=== PATIENT | female | born 1955 | race Caucasian/White ===

== ENCOUNTER 2018-10-05 04:56 | Outpatient (CLI) | payer MEDICARE, BC ==
[~2018-10-05 04:56] MED LIST: ALBU6.7H9 INH; ARIP5TAB4 PO; BENZ-49 PO; DILT180C66 PO; DULO-31 PO; FURO10VI51 IV; HYDR-4353 PO; LORA1TAB PO; PRED20TA PO; ROBDML PO
== END 2018-10-05 23:59 | disposition home or self-care (01) ==
LOC: DIABETIC 04:56
PROVIDERS: ATTEND Family Medicine
DX: E11.9 Type 2 diabetes mellitus without complications (principal); E66.9 Obesity, unspecified; Z71.3 Dietary counseling and surveillance
CPT/HCPCS: G0108

== ENCOUNTER 2018-11-18 01:11 | Outpatient (CLI) | payer MEDICARE, BC | END 2018-11-18 23:59 | disposition home or self-care (01) | LOC: DIABETIC 01:11 | PROVIDERS: ATTEND Family Medicine | DX: E11.65 Type 2 diabetes mellitus with hyperglycemia (principal); E11.40 Type 2 diabetes mellitus with diabetic neuropathy, unspecified; E11.21 Type 2 diabetes mellitus with diabetic nephropathy; E11.319 Type 2 diabetes mellitus with unspecified diabetic retinopathy without macular edema; E11.59 Type 2 diabetes mellitus with other circulatory complications; E11.43 Type 2 diabetes mellitus with diabetic autonomic (poly)neuropathy; K31.84 Gastroparesis; I10 Essential (primary) hypertension; E78.5 Hyperlipidemia, unspecified; Z79.84 Long term (current) use of oral hypoglycemic drugs; Z79.899 Other long term (current) drug therapy | CPT/HCPCS: G0108 ==

== ENCOUNTER 2019-03-22 02:32 | Outpatient (CLI) | payer MEDICARE, BC ==
[~2019-03-22 02:32] MED LIST changes: +ARIP5TAB14 PO; -ARIP5TAB4 PO
== END 2019-03-22 23:59 | disposition home or self-care (01) ==
LOC: DIABETIC 02:32
PROVIDERS: ATTEND Family Medicine
DX: E11.65 Type 2 diabetes mellitus with hyperglycemia (principal); E11.319 Type 2 diabetes mellitus with unspecified diabetic retinopathy without macular edema; E11.21 Type 2 diabetes mellitus with diabetic nephropathy; E11.40 Type 2 diabetes mellitus with diabetic neuropathy, unspecified; I10 Essential (primary) hypertension; E78.5 Hyperlipidemia, unspecified; Z79.84 Long term (current) use of oral hypoglycemic drugs
CPT/HCPCS: G0108

== ENCOUNTER 2022-04-24 06:30 | Day surgery (SDC) | payer MEDICARE, BC ==
[2022-04-23 11:43] LABS: ALBUMIN 4.2 G/DL (3.4-5.0); ANION GAP 8 (8-16); BLOOD UREA NITROGEN 14 MG/DL (7-18); CALCIUM 9.9 MG/DL (8.5-10.1); CHLORIDE 103 MMOL/L (99-107); GLUCOSE 139 MG/DL (70-104); POTASSIUM 3.8 MMOL/L (3.5-5.1); SODIUM 139 MMOL/L (135-145); TOTAL CARBON DIOXIDE 28.5 MMOL/L (24-32); eGFR 83 ML/MIN
[2022-04-23 11:44] LABS: BASOPHILS # (AUTO) 0.1 X10'3 (0-0.2); BASOPHILS % (AUTO) 0.9 % (0-1); EOSINOPHILS # (AUTO) 0.1 X10'3 (0-0.9); EOSINOPHILS % (AUTO) 0.6 % (0-6); HEMATOCRIT 42.4 % (35.0-45.0); HEMOGLOBIN 14.7 g/dl (12.0-16.0); LYMPHOCYTES # (AUTO) 2.4 X10'3 (1.1-4.8); LYMPHOCYTES % (AUTO) 24.1 % (21-51); MEAN CORPUSCULAR HEMOGLOBIN 32.8 PG (27.0-31.0); MEAN CORPUSCULAR HGB CONC 34.6 g/dL (33.0-36.5); MEAN CORPUSCULAR VOLUME 94.7 FL (78-98); MEAN PLATELET VOLUME 7.6 FL (7.4-10.4); MONOCYTES # (AUTO) 0.7 X10'3 (0-0.9); MONOCYTES % (AUTO) 6.7 % (2-12); NEUTROPHILS # (AUTO) 6.7 X10'3 (1.8-7.7); NEUTROPHILS % (AUTO) 67.7 % (42-75); PLATELET COUNT 304 X10'3 (140-440); RED BLOOD COUNT 4.48 X10'6 (4.20-5.60); WHITE BLOOD COUNT 9.8 X10'3 (4.5-11.0)
[2022-04-23 12:19] LABS: APTT 25 SECONDS (22-32)
[~2022-04-24] VITALS: Ht 160 cm; Wt 80.7 kg
[2022-04-24] VITALS (10 sets, daily range): BP systolic 119–163; BP diastolic 56–70
[~2022-04-24 06:30] MED LIST changes: +ALBU6.7H14 INH; -ALBU6.7H9 INH; -BENZ-49 PO; +TES100C PO
[2022-04-24] MEDS ORDERED: diphenhydrAMINE 25mg capsule PO PRN (06:50)
[2022-04-24] MEDS ORDERED: LORazepam 0.5 MG tablet PO PRN (06:50)
[2022-04-24] MEDS ORDERED: normal saline 1,000 ML IV SCH (06:50)
[2022-04-24] MEDS ORDERED: fentaNYL/PF 50MCG/1 ML 2ML syringe ONE (06:54)
[2022-04-24] MEDS ORDERED: verapamil 2.5 mg/ml inj IV ONE (06:54)
[2022-04-24] MEDS ORDERED: nitroGLYCERIN-Tridil 50MG/D5W 250 ML IV ONE (06:54)
[2022-04-24] MEDS ORDERED: midazolam 1 mg/ML 2ml injection ONE (06:55)
[2022-04-24] MEDS ORDERED: heparin 1,000unit/ml 10ml vial 10 ML ONE (06:55)
[2022-04-24] MEDS ORDERED: LIDOcaine 1% 30ml preserv. free vial ONE (06:55)
[2022-04-24] MEDS ORDERED: iohexol 350MG/ML 100ml bottle IV ONE (06:55)
[2022-04-24] MEDS ORDERED: HYDR-3972 (07:00)
[2022-04-24] MEDS ORDERED: DILT-36 PO (07:00)
[2022-04-24] MEDS ORDERED: METF-1203 PO (07:00)
[2022-04-24] MEDS ORDERED: DIGO250T2 PO (07:01)
[2022-04-24] MEDS ORDERED: ATOR10TA70 PO (07:01)
[2022-04-24] MEDS ORDERED: [UNRECOGNIZED DRUG - OTHER] PO (07:03)
[2022-04-24] MEDS ORDERED: ASPI-1265 PO (07:03)
[2022-04-24] MEDS ORDERED: APIX5TAB3 PO (07:05)
[2022-04-24] MEDS ORDERED: LISI2.5T14 PO (07:05)
[2022-04-24] MEDS ORDERED: iohexol 350 MG/ML 50ML vial IV ONE ×2 (08:42→08:53)
[2022-04-24] MEDS ORDERED: HYDROcodone/acetaminophen 10/325mg tab PO PRN (11:40)
== END 2022-04-24 14:00 | disposition home or self-care (01) ==
LOC: SSTAY O 06:30
PROVIDERS: ATTEND Internal Medicine Cardiovascular Disease
DX: R07.89 Other chest pain (principal); R06.02 Shortness of breath; R94.39 Abnormal result of other cardiovascular function study; I25.10 Atherosclerotic heart disease of native coronary artery without angina pectoris; I48.21 Permanent atrial fibrillation; E11.9 Type 2 diabetes mellitus without complications; F41.9 Anxiety disorder, unspecified; F32.9 Major depressive disorder, single episode, unspecified; E78.5 Hyperlipidemia, unspecified; E66.9 Obesity, unspecified; Z68.33 Body mass index [BMI] 33.0-33.9, adult; I10 Essential (primary) hypertension; Z79.84 Long term (current) use of oral hypoglycemic drugs; Z79.82 Long term (current) use of aspirin; Z79.899 Other long term (current) drug therapy; Z90.710 Acquired absence of both cervix and uterus; Z90.49 Acquired absence of other specified parts of digestive tract; Z98.890 Other specified postprocedural states; Z96.651 Presence of right artificial knee joint; Z87.891 Personal history of nicotine dependence; Z80.1 Family history of malignant neoplasm of trachea, bronchus and lung; Z80.0 Family history of malignant neoplasm of digestive organs; Z82.3 Family history of stroke
CPT/HCPCS: 36415; 76937; 80048; 82948; 85025; 85610; 85730; 93005; 93458; 99152; 99153; C1769; C1894; J1644; J2250; J3010; J3490; J7030; Q0163; Q9967; A6258; A6402; C1725